=== PATIENT | male | born 1955 | race Caucasian/White ===

== ENCOUNTER 2016-08-14 12:23 | Inpatient (IN) | payer MEDICARE, MEDICAID ==
[~2016-08-14] VITALS: Ht 167.6 cm; Wt 50.9 kg
--- NOTE | ~2016-08-14 | PR ---
[place], [place] PROGRESS NOTE NAME: ROCK SEGUNDO UNIT #: [id number] ROOM: 517 DOCTOR: JEFFERY PALACIO MD BIRTHDATE: [birth year] DOS: SUBJECTIVE: The patient was seen and examined. He is awake and alert. He is feeling a little bit better. He denied nausea or vomiting or chest pain. PHYSICAL EXAMINATION: VITAL SIGNS: Showed temperature 97.8, pulse 119, respiratory rate 18, and blood pressure 100/60. HEENT: Shows no JVD. LUNGS: With scattered rhonchi and occasional wheeze. HEART: Normal S1, S2. No rub, thrill or gallop. ABDOMEN: Soft, nontender. There is no organomegaly. EXTREMITIES: No edema. SKIN: Showed no rash. LABORATORY DATA: BUN 32, creatinine 5.2, sodium 139, potassium 3.4, calcium 9.0, phosphorus of 5.3. IMPRESSION: 1. End-stage renal disease on hemodialysis Thursday, Thursday, Thursday. Dialysis will be resumed on Thursday. 2. Anemia of chronic disease. Continue Epogen with dialysis. 3. Abdominal pain, workup is ongoing. 4. Chronic obstructive pulmonary disease. Ongoing supportive care, we will continue. 5. Hypertension. Continue medications. Avoid hypotension for his blood pressures are somewhat on the soft side. JEFFERY PALACIO MD CM:PNTRANS [id number] JEFFERY PALACIO MD 08/17/16 1258 interface
--- NOTE | ~2016-08-14 | PR ---
[place], [place] PROGRESS NOTE NAME: ROCK SEGUNDO UNIT #: [id number] ROOM: 517 DOCTOR: KASHIF FREEMAN MD BIRTHDATE: [birth year] DOS: 08/18/2016 NEPHROLOGY PROGRESS NOTE REASON FOR FOLLOWUP: End-stage renal disease. The patient was seen and evaluated. He felt poorly today. He underwent dialysis earlier this morning for approximately 3 hours. He was moving his arm around too much with discomfort. Access pressures began to climb and his treatment had to be cut short approximately by 1 hour. He did tolerate some fluid removal, although at this point, he remains mildly tachycardic, which seems to be his baseline. His blood pressures did not significantly fall on treatment. OBJECTIVE: VITAL SIGNS: Afebrile, heart rates in the one teens, blood pressure 110/86, pulse ox 98% to 91% on room air. GENERAL: He is awake, alert, but he is lying in bed, tired appearing. LUNGS: Decreased breath sounds bilaterally. NECK: Without JVD or lymphadenopathy. HEART: Decreased heart sounds, no audible rub. ABDOMEN: Soft. No overt tenderness per se. No rebound or guarding. His abdomen is less distended. EXTREMITIES: Peripheries without edema. LABORATORY DATA AND DIAGNOSTICS: White blood cell count 6, hemoglobin 8.2, platelets 500,000, up slightly. Sodium 134, potassium 3.9, chloride 87, bicarbonate 32, BUN 63, creatinine 8.1, albumin 1.9. Fluid showed 55% neutrophils and WBC count of 1,254, fluid albumin did not get ordered it seems. ASSESSMENT AND PLAN: 1. End-stage renal disease, hemodialysis Thursday, Thursday and Thursday. Earlier performed slightly shortened because of access issues and pain. 2. Anemia. Continue Epogen with dialysis. 3. Chronic obstructive pulmonary disease, ongoing treatment, potentially right heart strain and cor pulmonale may be a contributing factor to this ascites as well as end stage renal disease. 4. Hypertension, acceptably controlled. 5. Severe protein calorie malnutrition. Increase protein intake and overall intake as tolerated. Bowel regimen per Surgery. Discussed with Dr. Mccallum. [place], [place] PROGRESS NOTE NAME: ROCK SEGUNDO UNIT #: [id number] ROOM: 517 DOCTOR: KASHIF FREEMAN MD BIRTHDATE: [birth year] KASHIF FREEMAN MD CM:DAVID [id number] KASHIF FREEMAN MD 09/24/16 1358 interface
--- NOTE | ~2016-08-14 | PR ---
[place], [place] PROGRESS NOTE NAME: ROCK SEGUNDO UNIT #: [id number] ROOM: 517 DOCTOR: SANJUANA PEREZ MD BIRTHDATE: [birth year] DOS: 08/19/2016 This is a followup note on this gentleman who is second admission with abdominal pain, left upper quadrant, right upper quadrant, generalized weakness, ascites. Paracentesis has been done twice showed large amount of WBCs without any cytological diagnosis mentioned. Myself, I have done a CEA level and a CA 19-9, they are normal. His abdomen, he still has what looked like ascites. So far, all the CAT scan has been "negative" but that I think is suboptimal study. On one of the abdominal film it does show there is some kind of inflammatory change going on in left lower quadrant. Nutrition is very poor. Albumin is 1.6. IMPRESSION: Abdominal pain, ascites, history of chronic renal failure, unknown etiology, abdominal pain. Positive WBC count and paracentesis, which indicates some kind of inflammatory process going on. PLAN: From my standpoint, I think I discussed all these findings with the family and I told them that the only option left is to may be go in and look inside, but he is a high-risk patient and that is why he wanted the family to understand the whole business. He will have a high risk of being intubated. Wound dehiscence, anastomotic leak, continuous postop ascites, or other medical issues. She is going to talk to the patient and decide about it. Sanjuana Perez MD CM:PNTRANS [id number] SANJUANA PEREZ MD 09/24/16 4975 interface
--- NOTE | ~2016-08-14 | PR ---
[place], [place] PROGRESS NOTE NAME: ROCK SEGUNDO UNIT #: [id number] ROOM: 517 DOCTOR: SANJUANA PEREZ MD BIRTHDATE: [birth year] DOS: 08/17/2016 This is a followup note because yesterday when he came, he was down in the Radiology Department and I could not see him. The patient is known to us and this is second or third admission with abdominal pain. He does have ascites and fluid was drained out and after that, he feels better. He was supposed to have dialysis done on Thursday, but he could not because he was complaining about too much pain that he could not lie down flat. Today, he says his pain has eased up. The other problem that he is having is severe constipation, whether because he does not eat or he is dehydrated and multiple CAT scans have not shown much. The only problem is that because of the ascites, the visualization was not good because of the ground glass appearance. We cannot visualize the colon on him and that is the area of concern that I have. He looks emaciated. He is very pale. Mucous membranes of the tongue are dry. His abdomen is still distended with possibility of again fluid collection. He is tender in the left upper quadrant, but sometime we touched him all over and he starts complaining of pain. He had an abdominal x-ray done yesterday again and there are some stools and there is one area in the left upper quadrant, there is lot of thickened mesentery or thickened loops of bowel or whatever. Also his lab workup shows very low hemoglobin and hematocrit of 7.2 and 23.2. His kidney function, as you know, because of chronic problem, BUN 51 and creatinine gone up to 6.81. His potassium is 4, chloride is low, alkaline phosphatase is up, total albumin is 1.6. CA 19-9 antigen is normal, so that means that probability of pancreatic carcinoma will be very, very low. ASSESSMENT AND PLAN: 1. Recommendation would be to at least increase his diet to soft food. 2. He may need blood transfusion to improve his hemoglobin and hematocrit; that could be done during dialysis if Nephrology thinks that way. Also, you know, we will give him IV albumin to see if we can improve his albumin level and hopefully prevent the ascites coming back. 3. As for his colon goes, I think we should get maybe a barium enema done on him to exclude any blockage. I know that the last time we did a limited barium enema, we did not see any block in the sigmoid colon, but up towards the splenic flexure, we do not know what is going on. We still cannot rule out any underlying pathology because CAT scan is not optimal because of ascites. I did talk to his this morning and she understands. [place], [place] PROGRESS NOTE NAME: ROCK SEGUNDO UNIT #: [id number] ROOM: [facility] DOCTOR: SANJUANA PEREZ MD BIRTHDATE: [birth year] Sanjuana Perez MD CM:PNTRANS [id number] SANJUANA PEREZ MD 09/24/16 1359 interface
--- NOTE | ~2016-08-14 | CON ---
[place], [place] REPORT OF CONSULTATION NAME: ROCK SEGUNDO UNIT #: [id number] ROOM: 517 DOCTOR: SANJUANA PEREZ MD BIRTHDATE: [birth year] DOS: 08/15/2016 HISTORY OF PRESENT ILLNESS: The patient is a male patient that I saw him on last admission then he went home. Yesterday, he showed up in my clinic and according to him, he has been to [facility] and they have done some testing, especially he said that he had a paracentesis, but he was told there is no cancer. He is here with looks like very sick actually. He is complaining a lot of abdominal pain, looked emaciated. He is admitted. Actually, I saw him in my clinic and then I sent him here for admission based on what I was seeing on him. When he came here, he had a CAT scan with oral contrast and he had lab workup and he was given pain medication. His pain is diffuse and also he was saying that he did not poop for 1 week. He was not peeing, but I know that he is a chronic kidney failure patient and he is on dialysis so that may be the reason. I do not know what the paracentesis report was. PHYSICAL EXAMINATION: GENERAL: He seems to be very anxious looking, very uncomfortable, very emaciated. VITAL SIGNS: Okay. HEAD AND NECK: Normal. I do not see any bruit or adenopathy or thyromegaly. LUNGS: Seem to be clear. Maybe on the bases, there is some reduction of the sound. HEART: Heart sounds to me look alright. ABDOMEN: Distended actually, tensed, shows some rash on the right side in the periumbilical area. On palpation, they cannot appreciate any hepatosplenomegaly or any hernia; however, there is some fluid thrill and also possible shift in dullness. EXTREMITIES: There is some pedal edema, grade 2 pitting edema. NEUROLOGIC: Overall, he is stable actually. LABORATORY DATA: His lab workup shows CEA, which was done this morning to be 1.4, WBC 7.3, hemoglobin 8.1 and hematocrit is 25.5. His chemistry shows chloride of 94, potassium 3.7, BUN 36 and creatinine is 5.74, phosphorus is 5.1, which is high. Total protein is 5.9 and albumin is 2.0. CAT scan report is on the chart. Overall, I think he does not show any gross pathology. IMPRESSION: Abdominal pain, most probably clinical and radiological ascites, etiology most probably hypoproteinemia, hypoalbuminemia. Overall, I do not think this is an acute abdominal problem going on. However, because of the weight loss, emaciation one has to kind of worry about anything going on in there. PLAN: My plan is to do a CEA level which was done, it is of 1.4. I ordered CA 19-9 also just to see if there is nothing else going on. He has a history of constipation and at some point, I think colonoscopy may be indicated to rule out any tumor, although CAT scan grossly looking, does not show any such problem. As for ascites goes, I think improving nutrition will help and also maybe a repeat paracentesis to see any cytological issue there especially malignant cells are not. For now, I think they were not planning any surgical intervention because at this time, I do not think so that is needed. He will [place], [place] REPORT OF CONSULTATION NAME: ROCK SEGUNDO UNIT #: [id number] ROOM: 517 DOCTOR: SANJUANA PEREZ MD BIRTHDATE: [birth year] also need a dialysis to take care of the chronic kidney problem. Sanjuana Perez MD CM:CONSTR:REPORT OF CONSULTATION 1037 09/24/16 1404 interface
--- NOTE | ~2016-08-14 | PR ---
[place], [place] PROGRESS NOTE NAME: ROCK SEGUNDO UNIT #: [id number] ROOM: 517 DOCTOR: JEFFERY PALACIO MD BIRTHDATE: [birth year] DOS: 08/17/2016 SUBJECTIVE: The patient was seen and examined. He is awake and alert. He states he feels much better. Denies nausea, vomiting or chest pain. Denies shortness of breath. PHYSICAL EXAMINATION: VITAL SIGNS: Temperature is 98.0, pulse 106, respiratory rate 18, blood pressure 111/59. HEENT: Shows no JVD. LUNGS: Diminished breath sounds. No appreciable wheeze. HEART: Normal S1, S2. No rub, thrill or gallop. ABDOMEN: Soft and nontender. There is no organomegaly or rigidity. There is no rebound or guarding. EXTREMITIES: Had no edema. There is no lower extremity lymphadenopathy. SKIN: Showed no rash. LABORATORY DATA: Hemoglobin 7.2, white count 6.2, platelets of 380. BUN 51, creatinine 6.8, sodium 136, potassium 4.0, CO2 of 33, calcium 8.9, albumin 1.6. IMPRESSION: 1. End-stage renal disease on hemodialysis Thursday, Thursday, Thursday. Dialysis will be planned for tomorrow as per his normal schedule. 2. Anemia of chronic disease. Continue Epogen with dialysis. 3. Chronic obstructive pulmonary disease. Ongoing supportive care is ongoing. 4. Hypertension. Continue medications. 5. Severe malnutrition. Increase protein as tolerated. JEFFERY PALACIO MD CM:PNTRANS [id number] JEFFERY PALACIO MD 08/18/16 0751 interface
[~2016-08-14 12:23] MED LIST: AMLODIPINE BESY1 TAB PO; AMLODIPINE5 MG PO; AMOXICILLIN500 MG PO; BIAXIN500 MG PO; BP MEDS; CALCITRIOL0.25 MCG PO; CALCIUM ACETAT667 MG PO; CLARITIN10 MG PO; COLACE100 MG PO; CYCLOBENZAPRINE5 M3 PO; DARVOCET N 1001 TAB PO; DEXAMETHASONE1 MG PO; DOXAZOSIN MESYLA2 MG PO; DUONEB 3 MG/3 ML3 M1 INH; FLOVENT HFA12 GM INH; HYDROCODONE BIT1 T11 PO; KEFLEX500 MG PO; LYRICA50 MG PO; MEDROL DOSEPAK4 MG PO; METOPROLOL SR50 MG PO; NEXIUM40 MG PO; NIFEDIPINE ER90 M1 PO; OMEPRAZOLE D/R20 MG PO; PHARMASSURE FO0.4 MG PO; PHENERGAN W/ DE30 ML PO; PREDNICOT10 MG PO; PRILOSEC20 M1 PO; PROAIR HFA0.09 MG/AC INH; PROVENTIL0.09 MG/A1 INH; PROVENTIL0.09 MG/AC IH; Percocet 325 MG1 TAB PO; RESTORIL15 MG PO; SODIUM BICARBO650 MG PO; TRAMADOL HCL50 MG PO; VIBRAMYCIN100 MG PO; VICODIN 5/500 505 MG PO; ZITHROMAX TRI-500 M1 PO; ZITHROMAX Z PA250 MG PO; ZITHROMAX250 MG PO; ZOFRAN4 MG PO
[2016-08-14 12:32] VITALS: BP 122/62
[2016-08-14] MEDS ORDERED: TRAMADOL HCL50 MG PO (13:12)
[2016-08-14] MEDS ORDERED: MIRALAX17 GM PO (13:13)
[2016-08-14] MEDS ORDERED: BENTYL10 MG PO (13:13)
[2016-08-14 15:57] LABS: BASO % 0.4 % (0.0-1.0); EOS # 0.4 10*3/uL (0.0-0.4); EOS % 4.2 % (1.0-4.0); HEMATOCRIT 28.7 % (42.0-52.0); HEMOGLOBIN 8.7 g/dl (14.0-18.0); IG # 0.1 10*3/uL (0.0-0.1); LYMPH # 0.2 10*3/uL (1.3-4.4); LYMPH % 2.2 % (27.0-41.0); MEAN CELL VOLUME 97.3 fl (80.0-94.0); MEAN CORPUSCULAR HGB 29.5 pg (27.0-31.0); MEAN CORPUSCULAR HGB CONC 30.3 g/dl (33.0-37.0); MEAN PLATELET VOLUME 9.8 fl (9.6-12.3); MONO # 0.6 10*3/uL (0.1-1.0); MONO % 6.3 % (3.0-9.0); NEUT # 8.4 10*3/uL (2.3-7.9); NEUT % 86.4 % (47.0-73.0); PLATELET COUNT AUTOMATED 461 10*3/uL (130-400); RED BLOOD COUNT 2.95 10*6/uL (4.50-5.90); RED CELL DISTRI WIDTH 15.8 % (0-14.5); WHITE BLOOD COUNT 9.7 10*3/uL (4.8-10.8)
[2016-08-14 16:00] VITALS: BP 112/76
[2016-08-14 16:02] LABS: MAGNESIUM 1.9 mg/dL (1.5-2.1)
[2016-08-14 16:09] LABS: BILIRUBIN, TOTAL 0.3 mg/dl (0.2-1.0); POTASSIUM 3.6 mmol/L (3.5-5.1); TOTAL PROTEIN 6.3 gm/dL (6.4-8.2)
[2016-08-14 16:20] LABS: INTERNATIONAL NORM RATIO 1.1 (2.0-3.5); PROTHROMBIN TIME 11.4 SECONDS (9.0-12.4)
[2016-08-14 20:00] VITALS: BP 97/61
[2016-08-15] VITALS: BP 119/69
[2016-08-15 06:05] LABS: BASO % 0.4 % (0.0-1.0); EOS # 0.5 10*3/uL (0.0-0.4); EOS % 7.1 % (1.0-4.0); HEMATOCRIT 25.5 % (42.0-52.0); HEMOGLOBIN 8.1 g/dl (14.0-18.0); LYMPH # 0.2 10*3/uL (1.3-4.4); MEAN CELL VOLUME 95.5 fl (80.0-94.0); MEAN CORPUSCULAR HGB 30.3 pg (27.0-31.0); MEAN CORPUSCULAR HGB CONC 31.8 g/dl (33.0-37.0); MEAN PLATELET VOLUME 9.6 fl (9.6-12.3); MONO # 0.5 10*3/uL (0.1-1.0); MONO % 7.3 % (3.0-9.0); NEUT % 81.7 % (47.0-73.0); PLATELET COUNT AUTOMATED 442 10*3/uL (130-400); RED BLOOD COUNT 2.67 10*6/uL (4.50-5.90); RED CELL DISTRI WIDTH 15.9 % (0-14.5); WHITE BLOOD COUNT 7.3 10*3/uL (4.8-10.8)
[2016-08-15 06:07] LABS: BILIRUBIN, TOTAL 0.4 mg/dl (0.2-1.0); PHOSPHOROUS 5.1 mg/dL (2.5-4.9); POTASSIUM 3.7 mmol/L (3.5-5.1); TOTAL PROTEIN 5.9 gm/dL (6.4-8.2)
[2016-08-15 08:00] VITALS: BP 122/72
[2016-08-15 10:34] LABS: INTERNATIONAL NORM RATIO 1.1 (2.0-3.5); PROTHROMBIN TIME 11.4 SECONDS (9.0-12.4)
[2016-08-15 12:00] VITALS: BP 120/66
[2016-08-15 16:03] LABS: BODY FLUID RBC < 1000 /uL; BODY FLUID WBC 1254 /uL
[2016-08-15 18:12] LABS: BODY FLUID TYPE PERITONEAL
[2016-08-15 20:00] VITALS: BP 105/62
[2016-08-16] VITALS: BP 104/61
[2016-08-16 07:12] LABS: PHOSPHOROUS 5.3 mg/dL (2.5-4.9); POTASSIUM 3.4 mmol/L (3.5-5.1)
[2016-08-16 08:00] VITALS: BP 100/60
[2016-08-16 16:41] VITALS: BP 115/55
[2016-08-16 20:00] VITALS: BP 92/56
[2016-08-17] VITALS: BP 102/55
[2016-08-17 06:26] LABS: HEMATOCRIT 23.2 % (42.0-52.0); HEMOGLOBIN 7.2 g/dl (14.0-18.0); MEAN CELL VOLUME 94.3 fl (80.0-94.0); MEAN CORPUSCULAR HGB 29.3 pg (27.0-31.0); MEAN PLATELET VOLUME 9.8 fl (9.6-12.3); PLATELET COUNT AUTOMATED 380 10*3/uL (130-400); RED BLOOD COUNT 2.46 10*6/uL (4.50-5.90); RED CELL DISTRI WIDTH 16.1 % (0-14.5); WHITE BLOOD COUNT 6.2 10*3/uL (4.8-10.8)
[2016-08-17 06:57] LABS: ALBUMIN 1.6 gm/dl (3.1-4.5); BILIRUBIN, TOTAL 0.5 mg/dl (0.2-1.0); TOTAL PROTEIN 5.2 gm/dL (6.4-8.2)
[2016-08-17 07:23] LABS: HYPOCHROMIA SLIGHT; LYMPHOCYTE # 0.1 10*3/uL (1.3-4.4); METAMYELOCYTES 1 % (0-0); MONOCYTE # 0.1 10*3/uL (0.1-1.0); MYELOCYTES 1 % (0-0); NEUTROPHILS 96 % (47-73); PLATELET SUFFICIENCY NORMAL (NORMAL); POLYCHROMASIA SLIGHT; TOTAL CELLS COUNTED 100 #CELLS
[2016-08-17 08:00] VITALS: BP 100/52
[2016-08-17 12:00] VITALS: BP 111/59
[2016-08-17 16:00] VITALS: BP 107/57
[2016-08-17 20:00] VITALS: BP 110/60
[2016-08-18] VITALS: BP 116/68
[2016-08-18 06:03] LABS: HEMATOCRIT 26.2 % (42.0-52.0); HEMOGLOBIN 8.2 g/dl (14.0-18.0); MEAN CELL VOLUME 92.3 fl (80.0-94.0); MEAN CORPUSCULAR HGB 28.9 pg (27.0-31.0); MEAN CORPUSCULAR HGB CONC 31.3 g/dl (33.0-37.0); MEAN PLATELET VOLUME 9.9 fl (9.6-12.3); RED BLOOD COUNT 2.84 10*6/uL (4.50-5.90); RED CELL DISTRI WIDTH 16.4 % (0-14.5)
[2016-08-18 06:08] LABS: ALBUMIN 1.9 gm/dl (3.1-4.5); BILIRUBIN, TOTAL 0.3 mg/dl (0.2-1.0); POTASSIUM 3.9 mmol/L (3.5-5.1); TOTAL PROTEIN 5.7 gm/dL (6.4-8.2)
[2016-08-18 06:10] LABS: PLATELET COUNT AUTOMATED 500 10*3/uL (130-400)
[2016-08-18 06:54] LABS: LYMPHOCYTE # 0.1 10*3/uL (1.3-4.4); NEUTROPHIL # 5.9 10*3/uL (2.3-7.9); NEUTROPHILS 99 % (47-73); TOTAL CELLS COUNTED 100 #CELLS
[2016-08-18 06:55] LABS: PLATELET SUFFICIENCY HIGH (NORMAL)
[2016-08-18 08:00] VITALS: BP 110/86
[2016-08-18 09:22] LABS: BF LYMPHOCYTES 16 %; BF MONOCYTES 27 %; BF NEUTROPHILS 55 %
[2016-08-18 16:00] VITALS: BP 118/66
[2016-08-18 20:00] VITALS: BP 106/67
[2016-08-19] VITALS (7 sets, daily range): BP systolic 82–154; BP diastolic 50–74
[2016-08-19 07:25] LABS: HEMATOCRIT 27.5 % (42.0-52.0); HEMOGLOBIN 8.4 g/dl (14.0-18.0); MEAN CELL VOLUME 93.9 fl (80.0-94.0); MEAN CORPUSCULAR HGB 28.7 pg (27.0-31.0); MEAN CORPUSCULAR HGB CONC 30.5 g/dl (33.0-37.0); MEAN PLATELET VOLUME 9.7 fl (9.6-12.3); RED BLOOD COUNT 2.93 10*6/uL (4.50-5.90); RED CELL DISTRI WIDTH 16.4 % (0-14.5); WHITE BLOOD COUNT 6.9 10*3/uL (4.8-10.8)
[2016-08-19 07:26] LABS: PLATELET COUNT AUTOMATED 340 10*3/uL (130-400)
[2016-08-19 07:48] LABS: POTASSIUM 4.3 mmol/L (3.5-5.1)
[2016-08-19 07:51] LABS: EOSINOPHIL # 0.1 10*3/uL (0-0.4); EOSINOPHILS 1 % (1-4); HYPOCHROMIA SLIGHT; LYMPHOCYTE # 0.1 10*3/uL (1.3-4.4); METAMYELOCYTES 1 % (0-0); MONOCYTE # 0.3 10*3/uL (0.1-1.0); NEUTROPHIL # 6.3 10*3/uL (2.3-7.9); NEUTROPHILS 91 % (47-73); PLATELET SUFFICIENCY NORMAL (NORMAL); TOTAL CELLS COUNTED 100 #CELLS
[2016-08-20] VITALS (7 sets, daily range): BP systolic 98–104; BP diastolic 56–81
[2016-08-20 07:26] LABS: HEMATOCRIT 29.3 % (42.0-52.0); HEMOGLOBIN 8.8 g/dl (14.0-18.0); MEAN CELL VOLUME 94.2 fl (80.0-94.0); MEAN CORPUSCULAR HGB 28.3 pg (27.0-31.0); PLATELET COUNT AUTOMATED 297 10*3/uL (130-400); RED BLOOD COUNT 3.11 10*6/uL (4.50-5.90); RED CELL DISTRI WIDTH 16.9 % (0-14.5); WHITE BLOOD COUNT 6.6 10*3/uL (4.8-10.8)
[2016-08-20 07:56] LABS: EOSINOPHIL # 0.1 10*3/uL (0-0.4); EOSINOPHILS 1 % (1-4); LYMPHOCYTE # 0.1 10*3/uL (1.3-4.4); METAMYELOCYTES 1 % (0-0); MONOCYTE # 0.3 10*3/uL (0.1-1.0); NEUTROPHILS 91 % (47-73); PLATELET SUFFICIENCY NORMAL (NORMAL); POLYCHROMASIA SLIGHT; TOTAL CELLS COUNTED 100 #CELLS
[2016-08-20 08:10] LABS: ALBUMIN 1.8 gm/dl (3.1-4.5); BILIRUBIN, TOTAL 0.4 mg/dl (0.2-1.0); PHOSPHOROUS 5.8 mg/dL (2.5-4.9); POTASSIUM 4.1 mmol/L (3.5-5.1); TOTAL PROTEIN 5.4 gm/dL (6.4-8.2)
[2016-08-21] VITALS (11 sets, daily range): BP systolic 80–106; BP diastolic 52–67
[2016-08-21 07:38] LABS: HEMATOCRIT 27.9 % (42.0-52.0); HEMOGLOBIN 8.3 g/dl (14.0-18.0); MEAN CELL VOLUME 96.9 fl (80.0-94.0); MEAN CORPUSCULAR HGB 28.8 pg (27.0-31.0); MEAN CORPUSCULAR HGB CONC 29.7 g/dl (33.0-37.0); PLATELET COUNT AUTOMATED 230 10*3/uL (130-400); RED BLOOD COUNT 2.88 10*6/uL (4.50-5.90); RED CELL DISTRI WIDTH 16.5 % (0-14.5); WHITE BLOOD COUNT 5.5 10*3/uL (4.8-10.8)
[2016-08-21 07:55] LABS: INTERNATIONAL NORM RATIO 1.1 (2.0-3.5); PROTHROMBIN TIME 11.5 SECONDS (9.0-12.4)
[2016-08-21 08:00] LABS: EOSINOPHIL # 0.1 10*3/uL (0-0.4); EOSINOPHILS 2 % (1-4); LYMPHOCYTE # 0.2 10*3/uL (1.3-4.4); MONOCYTE # 0.2 10*3/uL (0.1-1.0); NEUTROPHIL # 5.1 10*3/uL (2.3-7.9); NEUTROPHILS 92 % (47-73); TOTAL CELLS COUNTED 100 #CELLS
[2016-08-21 08:01] LABS: PLATELET SUFFICIENCY NORMAL (NORMAL); POLYCHROMASIA SLIGHT
[2016-08-21 08:03] LABS: ALBUMIN 1.7 gm/dl (3.1-4.5); BILIRUBIN, TOTAL 0.4 mg/dl (0.2-1.0); POTASSIUM 4.2 mmol/L (3.5-5.1); TOTAL PROTEIN 5.3 gm/dL (6.4-8.2)
== END 2016-08-21 16:00 | disposition short-term general hospital (02) | DRG 682 ==
LOC: CT 12:23 → 5E 12:28
PROVIDERS: Family Medicine Adult Medicine; Hospitalist; Internal Medicine; Internal Medicine Hospice and Palliative Medicine
PROC: 0W9G3ZZ Drainage of Peritoneal Cavity, Percutaneous Approach (ICD-10-PCS; principal; 2016-08-15)
PROC: 5A1D60Z (ICD-10-PCS; 2016-08-18)
DX: I12.0 Hypertensive chronic kidney disease with stage 5 chronic kidney disease or end stage renal disease (principal); E43 Unspecified severe protein-calorie malnutrition; N18.6 End stage renal disease; C85.90 Non-Hodgkin lymphoma, unspecified, unspecified site; R18.8 Other ascites; J43.9 Emphysema, unspecified; K59.00 Constipation, unspecified; D63.1 Anemia in chronic kidney disease; E78.5 Hyperlipidemia, unspecified; K21.9 Gastro-esophageal reflux disease without esophagitis; Z72.0 Tobacco use; Z99.2 Dependence on renal dialysis; Z98.890 Other specified postprocedural states; Z80.9 Family history of malignant neoplasm, unspecified; Z79.899 Other long term (current) drug therapy; Z68.20 Body mass index [BMI] 20.0-20.9, adult